=== PATIENT | male | born 1960 | race Caucasian/White ===

== ENCOUNTER 2017-12-09 05:42 | Day surgery (SDC) | payer MEDICARE ==
[2017-12-09] MEDS: LR 1,000 ML IV (06:00)
[2017-12-09] MEDS ORDERED: LIDOCAINE 2% INJ 100 MG/5 ML SDV (FOR ANES.) As Ordered (07:13)
[2017-12-09] MEDS ORDERED: PROPOFOL 200 MG/20 ML VIAL As Ordered ×2 (07:13→07:54)
[2017-12-09] MEDS ORDERED: MIDAZOLAM INJ 2 MG/2 ML VIAL (J2250) As Ordered (07:13)
[2017-12-09] MEDS ORDERED: fentaNYL 100 MCG/2 ML INJECTION (J3010) As Ordered (07:14)
[2017-12-09] MEDS: CETACAINE SPRAY 5GM As Ordered (07:35)
[2017-12-09] MEDS: LIDOCAINE VISCOUS 2% SOLN 15ML UDC As Ordered (07:37)
== END 2017-12-09 09:30 | disposition home or self-care (01) ==
LOC: M SDC 05:42
DX: R01.1 Cardiac murmur, unspecified (principal); D15.1 Benign neoplasm of heart; F17.220 Nicotine dependence, chewing tobacco, uncomplicated; Z79.82 Long term (current) use of aspirin; Z79.899 Other long term (current) drug therapy
CPT/HCPCS: 93312

== ENCOUNTER → 2018-05-25 | Outpatient (CLI) | payer MEDICARE ==
[~2018-05-25] MED LIST: ASPI81TA85 PO; FISH120016 PO; TRAM50TA2 PO
--- NOTE | 2018-05-25 15:17 | REP ---
BILATERAL LOWER EXTREMITY DUPLEX VENOUS ULTRASOUND: DVT AND REFLUX EXAMINATION. HISTORY: Venous insufficiency bilaterally. FINDINGS: The deep veins are anechoic and fully compressible on two-dimensional scanning from the groin to the popliteal fossa in both lower extremities. Color flow and spectral Doppler interrogation are unremarkable. There is no evidence of DVT. REFLUX EXAM: Reflux is seen deep system and in the greater saphenous and lesser saphenous veins. A collateral is seen at the distal greater saphenous vein with reflux. Reflux is present measuring greater than 0.5 seconds in duration in the anterior accessory greater saphenous vein on the right. The right greater saphenous vein measures 6.9 mm in AP dimension proximally at the saphenofemoral junction and demonstrates 5.5 seconds of reflux. The greater saphenous vein at mid thigh on the right measures 5 mm in AP dimension and shows 7.5 seconds of reflux. At the knee level, the greater saphenous vein measures 1.4 mm and shows 5.1 seconds of reflux. Reflux is observed in the proximal and mid femoral vein and in the popliteal and lesser saphenous vein. The lesser saphenous vein measures 3.2 mm in AP dimension and shows 7.25 seconds of reflux. On the left, minimal reflux is seen in the deep system. No superficial system reflux was observed. The left greater saphenous vein measures 6 mm in AP dimension proximally at the saphenofemoral junction, 5.1 mm at midthigh, and 3.2 mm at the knee. The lesser saphenous vein measures 3.3 mm in AP dimension. IMPRESSION: Bilateral reflux noted, right more so than left. Electronically Signed by Espinoza Regalado MD 05/25/2018 04:06 P
== END ==
LOC: M RAD 10:19
PROVIDERS: ATTEND Surgery Vascular Surgery
DX: I87.2 Venous insufficiency (chronic) (peripheral) (principal)

== ENCOUNTER 2018-07-14 09:46 | Day surgery (SDC) | payer MEDICARE ==
[~2018-07-14] VITALS: Ht 175.3 cm; Wt 126.6 kg
[~2018-07-14 09:46] MED LIST changes: +ALL10TAB28 PO; +LEVO50TA5 PO; +RANI300T PO
[2018-07-14] MEDS ORDERED: LR 1,000 ML IV ONE (10:00)
[2018-07-14] MEDS ORDERED: LIDOCAINE W/EPINEPHRINE 1% 20ML VIAL As Ordered ONE (10:37)
[2018-07-14] MEDS ORDERED: PROPOFOL 500 MG/50 ML VIAL As Ordered ONE (10:43)
[2018-07-14] MEDS ORDERED: ONDANSETRON 4MG/2ML VIAL (J2405) As Ordered ONE (10:44)
[2018-07-14] MEDS ORDERED: fentaNYL 100 MCG/2 ML INJECTION (J3010) As Ordered ONE (10:44)
[2018-07-14] MEDS ORDERED: LIDOCAINE 2% INJ 100 MG/5 ML SDV (FOR ANES.) As Ordered ONE (10:44)
[2018-07-14] MEDS ORDERED: MIDAZOLAM INJ 2 MG/2 ML VIAL (J2250) As Ordered ONE (10:44)
[2018-07-14] MEDS ORDERED: oxyCODONE 5MG TAB As Ordered ONE (12:43)
[2018-07-14] MEDS: oxyCODONE 5MG TAB PO PRN ×3 (12:45→13:20)
[2018-07-14] MEDS ORDERED: NS 1,000 ML IV SCH (13:15)
[2018-07-14] MEDS ORDERED: fentaNYL 100 MCG/2 ML INJECTION (J3010) IV PRN (13:15)
[2018-07-14 15:20] VITALS: BP 182/81
--- NOTE | 2018-08-05 12:36 | RO ---
DATE OF PROCEDURE: 07/14/2018 ATTENDING SURGEON: Dr. Laila Marie. MAILROOM PERSONNEL: None. PREOPERATIVE DIAGNOSES: Right lower extremity swelling and pain, right lower extremity greater saphenous vein venous valvular insufficiency, recurrent right lower extremity cellulitis. POSTOPERATIVE DIAGNOSES: Right lower extremity swelling and pain, right lower extremity greater saphenous vein venous valvular insufficiency, recurrent right lower extremity cellulitis. PROCEDURE: Right greater saphenous vein radiofrequency ablation. INDICATION: The patient is a 57-year-old male with recurrent cellulitis, swelling and pain in the right lower extremity and was found to have venous valvular insufficiency in the right greater saphenous vein. The patient will undergo a right greater saphenous vein radiofrequency ablation. ANESTHESIA: Local MAC. ESTIMATED BLOOD LOSS: 5 mL IV FLUIDS: 400 mL. SPECIMENS: None. COMPLICATIONS: None. DRAINS: None. IMPLANTS: None. PROCEDURE: The patient was taken to the operating room, placed supine on the operating room table and the right lower extremity was prepped and draped in a standard surgical fashion. The right greater saphenous vein was cannulated using ultrasound guidance in the below-knee region. The catheter was advanced to 2 cm distal to the saphenofemoral junction. Tumescent solution was injected after which the right greater saphenous vein underwent ablation using the radiofrequency ablation catheter. Dressings were then applied. The patient tolerated the procedure well. All instrument, sponge, needle counts were correct at the end the case. There were no complications. Dr. Marie was present for and directed the entire case. The patient was transferred to the holding area and subsequently discharged in stable condition.
== END 2018-07-14 15:20 | disposition home or self-care (01) ==
LOC: M SDC 09:46
PROVIDERS: ATTEND Surgery Vascular Surgery
DX: I83.811 Varicose veins of right lower extremity with pain (principal); I87.2 Venous insufficiency (chronic) (peripheral); L03.115 Cellulitis of right lower limb; G47.30 Sleep apnea, unspecified; I73.9 Peripheral vascular disease, unspecified; E03.9 Hypothyroidism, unspecified; Z79.82 Long term (current) use of aspirin; Z79.899 Other long term (current) drug therapy; F17.220 Nicotine dependence, chewing tobacco, uncomplicated; I10 Essential (primary) hypertension; E66.01 Morbid (severe) obesity due to excess calories; R01.1 Cardiac murmur, unspecified; K21.9 Gastro-esophageal reflux disease without esophagitis; R93.89 Abnormal findings on diagnostic imaging of other specified body structures; M79.89 Other specified soft tissue disorders; E78.5 Hyperlipidemia, unspecified
CPT/HCPCS: 36475; C1894; J2250; J2405; J3010

== ENCOUNTER → 2018-07-20 | Outpatient (CLI) | payer MEDICARE ==
--- NOTE | 2018-07-20 15:05 | REP ---
Clinical: Status post right lower extremity ablation with pain . Technique: Perez scale and color Doppler evaluation using linear high frequency transducer. Findings: Ultrasound examination of the right lower extremity deep venous structures from the common femoral vein to the popliteal vein demonstrates normal compressibility flow and wave patterns in response to respiration and augmentation. There is no evidence for deep venous thrombosis. Greater saphenous vein is occluded consistent with history of recent ablation. Impression: No evidence for deep venous thrombosis. Electronically Signed by Robin Reid MD 07/20/2018 02:56 P
== END ==
LOC: M RAD 09:18
PROVIDERS: ATTEND Surgery Vascular Surgery
DX: Z86.718 Personal history of other venous thrombosis and embolism (principal)

== ENCOUNTER → 2018-10-20 | Outpatient (CLI) | payer MEDICARE ==
[~2018-10-20] MED LIST changes: -ALL10TAB28 PO; +ALL10TAB29 PO; +ALLO100T PO; +BUPIVACAINE HCL 0.5% 10 ML VIAL As Ordered ONE; +FURO20TA2 PO; +HEPARIN 1,000 UNITS/ML 10ML VIAL (FOR RADIOLOGY& DIALYSIS ONLY) As Ordered ONE; +ISOVUE-300 61% 50ML VIAL (Q9967) As Ordered ONE; +LIDOCAINE 2% MDV 20 ML VIAL As Ordered ONE; +MIDAZOLAM INJ 2 MG/2 ML VIAL (J2250) As Ordered ONE; +diphenhydrAMINE INJ 50MG/ML VIAL (J1200) As Ordered ONE; +fentaNYL 100 MCG/2 ML INJECTION (J3010) As Ordered ONE
[2018-10-20 12:15] VITALS: BP 131/75
--- NOTE | 2018-11-05 09:35 | REPIR ---
DATE OF PROCEDURE: 10/20/2018 ATTENDING SURGEON: Dr. Belkis Marie DIRECTOR FUNERAL: Livier Olguin and Goldie Cesar PREOPERATIVE DIAGNOSIS: Right lower extremity swelling. POSTOPERATIVE DIAGNOSIS: Right lower extremity swelling. PROCEDURE: Ultrasound-guided right superficial femoral vein cannulation, right lower extremity central venogram. INDICATION: The patient is a 57-year-old male with swelling in his right lower extremity who underwent radiofrequency ablation of his right greater saphenous vein and this actually made the swelling worse. The patient has had multiple ultrasounds showing no evidence of deep vein thrombosis (DVT). The patient will undergo a venogram to evaluate for DVT and possible stenotic or obstructive lesion resulting in the swelling. ANESTHESIA: Local with 10 mL of 2% lidocaine mixed with 0.5% Marcaine. FLUOR TIME: 0.1 minutes. CONTRAST: 10 mL . HEPARIN: None. COMPLICATIONS: None. DRAINS: None. SPECIMENS: None. IMPLANTS: None. PROCEDURE: The patient was taken to the angiography suite, placed supine on the angiography table and then prepped and draped in a standard surgical fashion. The right superficial femoral vein was cannulated using ultrasound guidance. A catheter was placed and a venogram performed showing no abnormality noted. Catheters and wires were removed. Manual compression was applied at the puncture site for hemostasis. Dressings were then applied. The patient tolerated the procedure well. All instrument, sponge and needle counts were correct at the end of the case. There were no complications. Dr. Marie was present for and directed the entire case. The patient was transferred to the holding area and subsequently discharged in stable condition.
== END ==
LOC: M IRPRO 08:34
PROVIDERS: ATTEND Surgery Vascular Surgery
DX: R60.0 Localized edema (principal); I87.2 Venous insufficiency (chronic) (peripheral); K21.9 Gastro-esophageal reflux disease without esophagitis; E03.9 Hypothyroidism, unspecified; J30.9 Allergic rhinitis, unspecified
CPT/HCPCS: 36005; 75820; C1894; Q9967

== ENCOUNTER 2018-12-26 11:47 | Outpatient (RCR) | payer MEDICARE ==
[~2018-12-26 11:47] MED LIST changes: -BUPIVACAINE HCL 0.5% 10 ML VIAL As Ordered ONE; -HEPARIN 1,000 UNITS/ML 10ML VIAL (FOR RADIOLOGY& DIALYSIS ONLY) As Ordered ONE; -ISOVUE-300 61% 50ML VIAL (Q9967) As Ordered ONE; -LIDOCAINE 2% MDV 20 ML VIAL As Ordered ONE; -MIDAZOLAM INJ 2 MG/2 ML VIAL (J2250) As Ordered ONE; -diphenhydrAMINE INJ 50MG/ML VIAL (J1200) As Ordered ONE; -fentaNYL 100 MCG/2 ML INJECTION (J3010) As Ordered ONE
== END 2018-12-29 ==
LOC: M PT 11:47
PROVIDERS: ATTEND Physician Assistant
DX: I87.321 Chronic venous hypertension (idiopathic) with inflammation of right lower extremity (principal)

== ENCOUNTER 2019-01-04 12:24 | Outpatient (RCR) | payer MEDICARE | END 2019-01-28 | LOC: M PT 12:24 | PROVIDERS: ATTEND Physician Assistant | DX: I87.321 Chronic venous hypertension (idiopathic) with inflammation of right lower extremity (principal) ==

== ENCOUNTER 2019-07-05 12:12 | Outpatient (RCR) | payer MEDICARE | END 2019-07-30 | LOC: M PT 12:12 | PROVIDERS: ATTEND Registered Nurse | DX: I89.0 Lymphedema, not elsewhere classified (principal); I87.321 Chronic venous hypertension (idiopathic) with inflammation of right lower extremity ==

== ENCOUNTER → 2022-08-13 | Outpatient (CLI) | payer MEDICARE ==
[~2022-08-13] MED LIST changes: -ALL10TAB29 PO; -ASPI81TA85 PO; +ASPI81TA86 PO; +CETI-24 PO
== END ==
LOC: M RAD 12:22
PROVIDERS: ATTEND Surgery
DX: I70.238 Atherosclerosis of native arteries of right leg with ulceration of other part of lower leg (principal); L97.812 Non-pressure chronic ulcer of other part of right lower leg with fat layer exposed; I82.811 Embolism and thrombosis of superficial veins of right lower extremity

== ENCOUNTER → 2023-01-05 | Outpatient (CLI) | payer MEDICARE | LOC: EDSEX → MERGE 12-18 11:30 → M RAD 10:54 | PROVIDERS: ATTEND Physician Assistant | DX: L97.812 Non-pressure chronic ulcer of other part of right lower leg with fat layer exposed (principal); Z53.9 Procedure and treatment not carried out, unspecified reason ==

== ENCOUNTER 2023-02-01 10:21 | Outpatient (RCR) | payer MEDICARE | END 2023-02-28 | LOC: M PT 10:21 | PROVIDERS: ATTEND Physician Assistant | DX: I89.0 Lymphedema, not elsewhere classified (principal) ==